=== PATIENT | male | born 1975 | race Caucasian/White ===

== ENCOUNTER 2021-10-08 17:01 | Emergency (ER) | payer BC ==
[2021-10-08 18:40] LABS: CORONAVIRUS COVID-19 NAA POSITIVE (NEGATIVE)
== END 2021-10-08 19:37 | disposition home or self-care (01) ==
LOC: JP.ED 17:01
DX: U07.1 COVID-19 (principal); Z86.16 Personal history of COVID-19
CPT/HCPCS: 0241U; 87081; 87880; 99282; 99284

== ENCOUNTER 2024-05-22 07:26 | Day surgery (SDC) | payer BC ==
[~2024-05-22 07:26] MED LIST: Midazolam 1 MG/ML 2 ML SDV ONE; Propofol 200 MG/20 ML SDV ONE; fentaNYL 100 MCG/2 ML SDV ONE
[2024-05-22] MEDS: Lactated Ringers 1,000 ML IV SCH (08:02)
[2024-05-22] MEDS ORDERED: Propofol 200 MG/20 ML SDV ONE (09:24)
== END 2024-05-22 11:20 | disposition home or self-care (01) ==
LOC: JP.SDS 07:26
PROVIDERS: ATTEND Surgery
DX: K22.70 Barrett's esophagus without dysplasia (principal); Z91.030 Bee allergy status
CPT/HCPCS: 43239; 45378; 88305; J2250; J2704; J3010; J7120; 00813-QZ